=== PATIENT | male | born 1980 | race Caucasian/White ===

== ENCOUNTER 2019-03-05 17:30 | Emergency (ER) | payer OTHER ==
[~2019-03-05] VITALS: Ht 177.8 cm; Wt 104.3 kg
[2019-03-05 18:11] VITALS: BP 156/83
--- NOTE | 2019-03-05 18:27 | ER.PDOC ---
General Chief Complaint: Fever Stated Complaint: FEVER, COUGH Time seen by MD: 18:22 Source: patient Exam Limitations: no limitations History of Present Illness Initial Comments Fever and cough for 2 days. Timing/Duration: gradual Severity: moderate Associated Symptoms: fever/chills, cough Allergies: Coded Allergies: No Known Allergies (Unverified , 12/24/14) Home Meds No Active Prescriptions or Reported Meds Constitutional: see HPI EENTM: no symptoms reported Respiratory: see HPI Cardiovascular: no symptoms reported Gastrointestinal: no symptoms reported All Other Systems: Reviewed and Negative Past Medical History Medical History: hypertension Surgical History: no surgical history Social History Smoking: less than 1 pack/day Alcohol Use: occassionally Drug Use: none Physical Exam General Appearance: alert, no distress Throat: pharynx nml, airway nml Neck: nml inspection, supple Respiratory: no resp.distress, breath sounds nml Abdomen: non-tender, no organomegaly CVS: reg rate & rhythm, heart sounds nml Skin: color nml, no rash, warm/dry Extremities: non-tender, nml ROM, no pedal edema NEURO/PSYCH: oriented x 3, CN's nml as tested, motor nml, sensation nml, mood/affect nml Results/Orders Results/Orders Orders - CHELSEY SULLIVAN MD Strep Screen (03/05/19 18:23) Influenza A&B (03/05/19 18:23) Vital Signs Date Time Temp Pulse Resp B/P (MAP) Pulse Ox O2 Delivery O2 Flow Rate FiO2 03/05/19 18:13 99.1 113 22 99.1 03/05/19 18:11 99.1 113 22 156/83 (107) 96 Room Air 99.1 03/05/19 18:07 99.1 113 22 96 Room Air 99.1 Laboratory Tests Test 03/05/19 18:30 Influenza Type A Antigen NEGATIVE (NEG) Influenza B Immunofluorescence NEGATIVE (NEG) Group A Streptococcus Screen NEGATIVE (NEGATIVE) Departure Time of Disposition: 19:14 Disposition: 01 HOME, SELF-CARE Impression: Primary Impression: Acute respiratory infection Condition: Stable Additional Instructions: Mucinex DM OTC as directed Rest home and return to work on 03/07/19 Scripts No Active Prescriptions or Reported Meds Duration or Time Spent with Pa: 30 mins CHELSEY SULLIVAN MD Mar 05, 2019 18:27
[2019-03-05 19:34] VITALS: BP 121/62
[2019-03-05 19:37] VITALS: BP 121/62
== END 2019-03-05 19:35 | disposition home or self-care (01) ==
LOC: ER 17:30
DX: J06.9 Acute upper respiratory infection, unspecified (principal); I10 Essential (primary) hypertension; F17.210 Nicotine dependence, cigarettes, uncomplicated
CPT/HCPCS: 87070; 87804; 87880; 99284

== ENCOUNTER 2021-05-22 09:53 | Emergency (ER) | payer OTHER ==
[~2021-05-22] VITALS: Ht 180.3 cm; Wt 108.9 kg
[2021-05-22 10:20] VITALS: BP 160/75
[2021-05-22 11:01] VITALS: BP 160/85
--- NOTE | 2021-05-22 11:22 | ER.PDOC ---
General Chief Complaint: Extremities Stated Complaint: R ANKLE INJURY Time seen by MD: 11:21 Source: patient Exam Limitations: no limitations History of Present Illness Initial Comments Right ankle pain and swelling after he twisted it this morning stepping out of his pickup. Onset: just prior to arrival Severity: moderate Context: twist Modifying Factors: pain on movement Allergies: Coded Allergies: No Known Allergies (Unverified , 12/24/14) Home Meds No Active Prescriptions or Reported Meds Past Medical History Medical History: no pertinent history Surgical History: cholecystectomy Family History Significant Family History: no pertinent family hx Social History Smoking: non-smoker Alcohol Use: occassionally Drug Use: none Review of Systems Constitutional: no symptoms reported EENTM: no symptoms reported Respiratory: no symptoms reported Cardiovascular: no symptoms reported Gastrointestinal: no symptoms reported Musculoskeletal: see HPI All Other Systems: Reviewed and Negative Physical Exam General Appearance: Alert, No Apparent Distress Foot: nml inspection, non-tender Ankle: tenderness (right ankle), swelling Gait: limited by pain Neuro: sensation nml, motor nml Vascular: no vascular compromise Tendons: tendon function nml Leg/Knee/Thigh: uninjured above ankle Skin: warm/dry Head/ENT: nml inspection, pharynx nml Neck/Back: nml inspection, non-tender Resp/CVS: no resp distress Abdomen: non-tender, no organomegaly Results/Orders Results/Orders Orders - CHELSEY SULLIVAN MD Xr Ankle 3v Rt (05/22/21 11:02) Vital Signs Date Time Temp Pulse Resp B/P (MAP) Pulse Ox O2 Delivery O2 Flow Rate FiO2 05/22/21 11:01 98.3 70 18 160/85 (110) 97 Room Air 05/22/21 10:20 98.3 70 18 05/22/21 10:20 98.3 70 18 97 Progress Progress X rays right ankle: Soft tissue swelling over the lateral ankle. 2. Findings suspicious for a small avulsion fracture off of the lateral talus. Reviewed x-ray results with the patient. He voices understanding. I offered him a walking boot but he declined. I also offered him Reyes wrap and he declined. He told me that he will buy an ankle brace and use it. He declined if in pain medication and told me that he can walk around with very minimal pain. ER DEPART Departure Time of Disposition: 12:28 Disposition: 01 HOME / SELF CARE / HOMELESS Impression: Primary Impression: Right ankle injury Additional Impression: Ankle pain, right Condition: Stable Referrals: PCP,UNKNOWN (PCP) PRIMARY CARE PROVIDER Additional Instructions: Ice Ibuprofen Follow-up with your PCP in 1 week Return to ED if worsening or concerns Scripts No Active Prescriptions or Reported Meds Duration or Time Spent with Pa: 20 min Problem Qualifiers Primary Impression: Right ankle injury Encounter type: initial encounter Qualified Codes: S99.911A - Unspecified injury of right ankle, initial encounter Additional Impression: Ankle pain, right Chronicity: acute Qualified Codes: M25.571 - Pain in right ankle and joints of right foot CHELSEY SULLIVAN MD May 22, 2021 11:22
--- NOTE | 2021-05-22 11:56 | DIREP ---
PROCEDURE:XRAY ANKLE MIN 3VWS-RT COMPARISON:None. INDICATIONS:INJURY FINDINGS: BONES:There is a 6 mm linear flake of bone along the lateral margin of the talar body only seen on the AP image. This may represent an avulsion fracture. There are no other fractures identified. JOINTS:Normal. SOFT TISSUES:Soft tissue swelling over the lateral malleolus. OTHER:No additional findings. CONCLUSION: 1. Soft tissue swelling over the lateral ankle. 2. Findings suspicious for a small avulsion fracture off of the lateral talus. Dictated by: Noman Flowers M.D. on 05/22/2021 at 11:51 AM
[2021-05-22 12:00] VITALS: BP 155/82
[2021-05-22 12:45] VITALS: BP 152/80
== END 2021-05-22 12:47 | disposition home or self-care (01) ==
LOC: ER 09:53
DX: S99.911A Unspecified injury of right ankle, initial encounter (principal); Z90.49 Acquired absence of other specified parts of digestive tract; X50.9XXA Other and unspecified overexertion or strenuous movements or postures, initial encounter; Y93.89 Activity, other specified; Y92.89 Other specified places as the place of occurrence of the external cause; Y99.8 Other external cause status
CPT/HCPCS: 99283; 73610-RT